=== PATIENT | male | born 1995 | race Hispanic/Latino ===

== ENCOUNTER 2020-04-15 19:20 | Emergency (ER) | payer SELFPAY ==
[2020-04-15] MEDS ORDERED: Acetaminophen 500 MG TAB ONE (19:29)
[2020-04-15] MEDS ORDERED: Ibuprofen 800 MG TAB ONE (19:29)
== END 2020-04-15 20:12 | disposition home or self-care (01) ==
LOC: MADERS 19:20
DX: S00.83XA Contusion of other part of head, initial encounter (principal); S80.211A Abrasion, right knee, initial encounter; V89.2XXA Person injured in unspecified motor-vehicle accident, traffic, initial encounter
CPT/HCPCS: 99284